=== PATIENT | male | born 1980 | race Caucasian/White ===

== ENCOUNTER 2017-02-19 15:25 | Emergency (ER) | payer OTHER ==
[~2017-02-19] VITALS: Ht 177.8 cm; Wt 109.1 kg
[2017-02-19 15:28] VITALS: TEMP 36.9; Ht 177.8 cm; Wt 109.1 kg
[2017-02-19] MEDS ORDERED: XYLOCAINE 1%/SOD BICARB 20 ML VIAL INFIL ONE (16:15)
[2017-02-19] MEDS ORDERED: CEPH500C2 PO (17:26)
--- NOTE | 2017-02-19 17:28 | EMERGENCY ROOM VISIT NOTE ---
ED Visit Note First contact with patient: 15:43 CHIEF COMPLAINT: Right elbow surgical wound dehiscence HISTORY OF PRESENT ILLNESS: Patient is a right-hand dominant 36-year-old male who presents emergency department for evaluation of separation of his right elbow surgical wound that occurred 2 or 3 days ago. Patient underwent right elbow surgery performed by Dr. Jones on February 07, 12 days ago. He was not immobilized in a splint or a sling. Patient states that he sleeps with his arm curled up underneath him in flexion. At some point, the incision split open. He notes some clear drainage from the area. His has cleansed it with pressure peroxide and water. He rates his discomfort a 3/10. He was supposed to see his surgeon in follow-up 2 days ago, but missed his postoperative appointment. There has been no bleeding. REVIEW OF SYSTEMS: Review of systems as per HPI. All other systems reviewed were negative. At least 6 systems reviewed. PMH: Electronic medical records are reviewed and summarized as above/below. See Problem List. SOCIAL HISTORY: Patient lives at home with his and children. PHYSICAL EXAM: Vital Signs: Reviewed Nurse's notes. Examination of the right elbow show a 2 cm surgical wound, that has completely . There is clear drainage from the area. No erythema, increased warmth or induration. No elbow joint effusion is noted. Range of motion of the elbow is full. EMERGENCY DEPARTMENT COURSE: The patient was seen and evaluated as above. I was able to speak with Dr. Jones, who was in agreement with delayed primary closure. The area was cleansed with Betadine and draped sterilely. 1% buffered lidocaine was infiltrated in the wound. Wound was irrigated copiously using normal saline solution, then reapproximated using 4, 4-0 nylon sutures. The patient was placed in a long arm posterior Ortho-Glass went in extension. He will be placed on Keflex to minimize the risk of infection. He was advised to follow-up at [facility] in 2 days for recheck. Problem List Medical Problems: (1) Hypertension Status: Chronic Surgical Problems: (1) History of elbow surgery Status: Resolved (2) History of reconstruction of anterior cruciate ligament tear Status: Resolved (3) Hx of cholecystectomy Status: Resolved Current/Historical Medications Scheduled Cephalexin Monohydrate (Keflex), 500 MG PO TID Allergies Coded Allergies: No Known Allergies (Unverified , 02/19/17) Vital Signs Date Time Temp Pulse Resp B/P (MAP) Pulse Ox O2 Delivery O2 Flow Rate FiO2 02/19/17 17:47 96 18 127/91 94 Room Air 02/19/17 15:28 36.9 87 18 146/93 96 Room Air Medications Administered Medications (Trade) Dose Ordered Sig/Raymond Route Start Time Stop Time Status Last Admin Dose Admin Cephalexin Monohydrate (Keflex 500MG Home Pack) 1 homepack NOW ONCE PO 02/19/17 17:30 02/19/17 17:31 DC 02/19/17 17:52 1 HOMEPACK Departure Information Impression Primary Impression: Wound dehiscence, surgical Prescriptions Cephalexin Monohydrate (KEFLEX) 500 Mg Cap 500 MG PO TID, #21 CAP Prov: Libby Rivera PA 02/19/17 Referrals Marcos Louise M.D. (PCP) Patient Instructions [facility] Additional Instructions Cephalexin(Keflex) 500mg: Take one pill 3 times daily for 7 days to prevent infection. All antibiotics can cause diarrhea. If this occurs and you feel worse or it does not resolve in 1-2 days follow up with your doctor or return to the Emergency Department as this could be signs of serious underlying problems. Any medication can cause an allergic reaction, stop the pills immediately and return to the ER for rash, hives, breathing difficulties, or swelling. Ibuprofen(Motrin, Advil) may be used for fever or pain. Use 600mg every six hours as needed. Take with food. Avoid using more than 2400mg in a 24 hour period. Do not use 2400mg per day for more than three consecutive days without physician direction. Prolonged inappropriate use can lead to stomach upset or ulcers. This medication can be taken if you need to drive, work, or perform activities which may be dangerous when taking narcotic pain medication. (AND/OR) Acetaminophen(Tylenol) may be used for fever or pain. Use 1000mg every six hours as needed. Avoid using more than 3000mg in a 24 hour period. This medication can be taken if you need to drive, work, or perform activities which may be dangerous when taking narcotic pain medication. Continue all post operative instructions according to Dr. Jones. Rest and elevate your injury. Do not get the splint wet. If your splint feels excessively tight, you have worsening pain, develop numbness or tingling, or your digits appear blue, loosen the josias wrap. Then reapply the josias wrap gently without removing the splint. If your symptoms are not quickly relieved return to the ER for re- evaluation. Continue current medications. Call [facility] tomorrow to arrange follow up for your injury. Problem Qualifiers Primary Impression: Wound dehiscence, surgical Encounter type: initial encounter Qualified Codes: T81.31XA - Disruption of external operation (surgical) wound, not elsewhere classified, initial encounter
[2017-02-19] MEDS ORDERED: CEPHALEXIN 500MG HOME PACK 1 EA BTL PO ONE (17:30)
[2017-02-19 17:47] VITALS: BP 127/91; PULSE 96; O2SAT 94
== END 2017-02-19 17:59 | disposition home or self-care (01) ==
LOC: C.EDB 15:27 → C.EDD 17:59
DX: T81.31XA Disruption of external operation (surgical) wound, not elsewhere classified, initial encounter (principal); X58.XXXA Exposure to other specified factors, initial encounter; I10 Essential (primary) hypertension

== ENCOUNTER → 2018-01-01 | Day surgery (SDC) | payer OTHER ==
[~2018-01-01] VITALS: Ht 177.8 cm; Wt 111.4 kg
[~2018-01-01] MED LIST: AMOX500C3 PO; ASPI-390; CETI10TA73 PO; CLR10 PO; LIDOCAINE HCL 2% 2 ML VIAL (20MG/ML) ONE; MIDAZOLAM HCL 1 MG/ML 2ML VIAL ONE; OMEP20TA PO; ONDANSETRON INJ 2 MG/ML 2 ML VIAL ONE; PROPOFOL IV EMULSION 10 MG/ML 20 ML VIAL ONE
[2018-01-01 09:33] VITALS: Ht 177.8 cm; Wt 111.4 kg
--- NOTE | 2018-01-01 10:12 | Endo History and Physical ---
History & Physical Date of Service: January 01, 2018. Chief Complaint: Dysphagia Referring Physician: Marcos Louise History of Present Illness 37 yo CM who presents for EGD secondary to dysphagia. Past Surgical History Hx Cardiac Surgery: No Hx Internal Defibrillator: No Hx Pacemaker: No Hx Abdominal Surgery: Yes (Kennedi, ) Hx of Implantable Prosthesis: No Hx Post-Op Nausea and Vomiting: No Hx Cancer Surgery: No Hx Thoracic Surgery: No Hx Orthopedic: Yes (Right elbow & Wrist, ulnar nerve release. R ACL repair) Hx Urinary Tract Surgery: No Family History None Social History Smoking Status: Current Every Day Smoker Hx Substance Use: No Hx Alcohol Use: Yes (a beer a month) Allergies Coded Allergies: No Known Allergies (Unverified , 01/01/18) Current Medications Reported Home Medications Medications Dose Route/Sig Max Daily Dose Days Date Category Excedrin Migraine (Cikxwqy-Uenezxdreoarb-Eokcehde) 1 Tab Tab PRN 01/01/18 Reported All Day Allergy (Cetirizine Hcl) 10 Mg Tab 1 Tab PO DAILY 30 01/01/18 Reported Omeprazole 20 Mg Tab 1 Tab PO DAILY 90 01/01/18 Reported Amoxil (Amoxicillin) 500 Mg Cap 1 Cap PO BID 10 01/01/18 Reported Vital Signs Weight (Kilograms): 111.36 Height (Feet): 5 Height (Inches): 10 Date Time Temp Pulse Resp B/P (MAP) Pulse Ox O2 Delivery O2 Flow Rate FiO2 01/01/18 10:08 36.7 77 18 142/92 (109) 95 Room Air Physical Exam General Appearance: WD/WN, no apparent distress Respiratory/Chest: Auscultation: breath sounds normal Cardiovascular: Heart Auscultation: RRR Abdomen: Bowel Sounds: normal Inspection & Palpation: soft, non-distended, no tenderness, guarding & rebound Assessment and Plan Assessment: 37 yo CM who presents for EGD secondary to dysphagia. Plan: Proceed with EGD.
--- NOTE | 2018-01-01 10:37 | GI REPORT ---
Patient Name: Jose M Freeman Procedure Date: 01/01/2018 10:24 AM Date of : 1980 Admit Type: Outpatient Age: 37 Gender: Male Attending MD: Fabio Redd DO Procedure: Upper GI endoscopy Providers: Fabio Redd DO Referring MD: Marcos Louise Indications: Dysphagia Medicines: Monitored Anesthesia Care Complications: No immediate complications. Estimated Blood Loss: Estimated blood loss: none. Procedure: Pre-Anesthesia Assessment: - Prior to the procedure, a History and Physical was performed, and patient medications and allergies were reviewed. The patient's tolerance of previous anesthesia was also reviewed. The risks and benefits of the procedure and the sedation options and risks were discussed with the patient. All questions were answered, and informed consent was obtained. Prior Anticoagulants: The patient has taken no previous anticoagulant or antiplatelet agents. ASA Grade Assessment: II - A patient with mild systemic disease. After reviewing the risks and benefits, the patient was deemed in satisfactory condition to undergo the procedure. After obtaining informed consent, the endoscope was passed under direct vision. Throughout the procedure, the patient's blood pressure, pulse, and oxygen saturations were monitored continuously. The Scope was introduced through the mouth, and advanced to the second part of duodenum. The upper GI endoscopy was accomplished without difficulty. The patient tolerated the procedure well. Findings: The esophagus was normal. The stomach was normal. The examined duodenum was normal. Impression: - Normal esophagus. - Normal stomach. - Normal examined duodenum. - No specimens collected. Recommendation: - Resume previous diet. - Continue present medications. - Return to primary care physician as previously scheduled. Fabio Redd DO 01/01/2018 10:37:04 AM This report has been signed electronically. Note Initiated On: 01/01/2018 10:24 AM Number of Addenda: 0 I attest to the content of the Intraoperative Record and orders documented therein, exceptions below {[id number]}
--- NOTE | 2018-01-01 10:37 | Discharge Instructions ---
Endoscopy Patient Instructions Date / Procedure(s) Performed January 01, 2018. EGD Allergy Information Coded Allergies: No Known Allergies (Unverified , 01/01/18) Discharge Date / Findings January 01, 2018. Normal EGD Medication Instructions Stopped Medication(s): Excedrin Migraine taken on 12/31/17 OK to resume all medications today as prescribed Reported Home Medications Medications Dose Route/Sig Max Daily Dose Days Date Category Excedrin Migraine (Qgnjqeu-Uqitqeeqaiplc-Vezvqftt) 1 Tab Tab PRN 01/01/18 Reported All Day Allergy (Cetirizine Hcl) 10 Mg Tab 1 Tab PO DAILY 30 01/01/18 Reported Omeprazole 20 Mg Tab 1 Tab PO DAILY 90 01/01/18 Reported Amoxil (Amoxicillin) 500 Mg Cap 1 Cap PO BID 10 01/01/18 Reported Provider Instructions Activity Restrictions - No exercising or heavy lifting for 24 hours. - Do not drink alcohol the day of the procedure. - Do not drive a car or operate machinery until the day after the procedure. - Do not make any important decisions or sign important papers in 24 hours after the procedure. Following Day: - Return to full activity which may include returning to work/school. Diet Start your diet with liquids and light foods (jello, soup, juice, toast). Then eat your usual diet if not nauseated. Treatment For Common After Affects For mild abdominal pain, bloating, or excessive gas: - Rest - Eat lightly - Lie on right side Follow-Up Information Follow-up with Marcos Louise as scheduled Anesthesia Information What You Should Know You have had a procedure that required some medicine to reduce anxiety and discomfort. This treatment is called moderate sedation. After receiving the treatment, you may be sleepy, but you will be able to breathe on your own. The effects of the treatment may last for several hours. Follow these instructions along with Activity/Diet recommendations noted above: * Do NOT do anything where dizziness or clumsiness would be dangerous. * Rest quietly at home today, then you can be up and about tomorrow. * Have a responsible person stay with you the rest of today. * You may have had an I.V. today. If so, you may take the dressing off later today. Recommendations Call your doctor if: * Trouble breathing * Continuous vomiting for more than 24 hours * Temperature above 101 degrees * Severe abdominal pain or bloating * Pain not relieved by pain medicine ordered * There is increased drainage or redness from any incision * A large amount of rectal bleeding greater than 2-3 tablespoons. (If you had a polyp/s removed or have hemorrhoids, a small amount of blood - from the rectum is to be expected.) * You have any unanswered questions or concerns. IN THE EVENT OF A SERIOUS EMERGENCY, GO TO THE NEAREST EMERGENCY ROOM Your discharge instructions were prepared by provider Fabio Redd. Patient Instructions Signature Page Jose M Freeman Patient (or Guardian) Signature/Date: I have read and understand the instructions given to me by my caregivers. Caregiver/RN/Doctor Signature/Date: The above-named patient and/or guardian has received patient instructions on this date. + Original Patient Signature Page (only) stays with chart. Please make copy for patient.
--- NOTE | 2018-01-01 10:45 | Anesthesiology Progress Note ---
Anesthesia Post Op Note Date & Time January 01, 2018 at 10:45 Vital Signs Pain Intensity: 4 Vital Signs Past 12 Hours Date Time Temp Pulse Resp B/P (MAP) Pulse Ox O2 Delivery O2 Flow Rate FiO2 01/01/18 10:08 36.7 77 18 142/92 (109) 95 Room Air Notes Mental Status: alert / awake / arousable, participated in evaluation Pt Amnestic to Procedure: Yes Nausea / Vomiting: adequately controlled Pain: adequately controlled Airway Patency, RR, SpO2: stable & adequate BP & HR: stable & adequate Hydration State: stable & adequate Anesthetic Complications: no major complications apparent
[2018-01-01 11:10] VITALS: BP 134/77; PULSE 71; O2SAT 96
== END | disposition home or self-care (01) ==
LOC: C.GI 09:13
PROVIDERS: ATTEND Internal Medicine
DX: R13.10 Dysphagia, unspecified (principal); Z98.890 Other specified postprocedural states; F17.200 Nicotine dependence, unspecified, uncomplicated; E66.9 Obesity, unspecified; Z68.35 Body mass index [BMI] 35.0-35.9, adult